=== PATIENT | male | born 1950 | race Caucasian/White ===

== ENCOUNTER 2020-02-26 19:45 | Observation (INO) ==
[2020-02-26 20:50] VITALS: BMI 25.0
--- NOTE | 2020-02-26 21:49 | DR.SOBA ---
HPI Time Seen Time Seen by Provider: 02/26/20 21:49 Primary Care Physician Primary Care Physician: KELLY VILLAFANA HPI Comment HPI Comment: 69 yo m w/ advanced dementia recent dc'd from hospital w/ covid presents w/ stool incontinence. Son simply states they are unable to care for him due to since discharge from hospital patient has been incontinent of stool. Limited hx as son left shortly after patient's arrival. No recent f/c, sob, cough. Complaints Chief Complaint:: PATIENT INTO ED WITH HIS SON IN WHEELCHAIR WITH C/O "COVID"; PATIENT'S SON STATES PATIENT WAS DIAGNOSED BY PCP LAST WEEK, BUT STATES NO MEDICATIONS WERE GIVEN. PATIENT'S SON IS ALSO INQUIRING ABOUT SHELTER PLACEMENT FOR PATIENT DUE TO DEMENTIA Source History Provided: Family Member and Other Mode of Arrival Mode of Arrival: Ambulatory Timing Onset of Chief Complaint: 02/19/20 Other History Other History: limited hx d/t dementia PMH PMH Past Medical History: Yes Past Medical History: Alzheimers, Hypertension and Hypothyroidism Past Medical History Comment: HEP C Past Surgical History: Yes Surgical History: Joint Replacement Past Surgical History Comment: RIGHT HIP REPLACEMENT, THYROIDECTOMY Family History History of Family Medical Conditions: No Social History Alcohol Use: None Do you use any recreational Drugs:: No Lives With: Family Lives Where: Home Infectious screening Have you traveled outside the country in the last 6 months?: No Isolation: Droplet ROS Review of Systems Unable to Obtain Due To: Altered mental status and Dementia PE Vital Signs Vitals: Temperature 36.4 C Pulse Rate 69 Respiratory Rate 25 Blood Pressure [Left Arm] 142/78 Blood Pressure 163/78 O2 Sat by Pulse Oximetry 100 General Limitations: No Limitations General Appearance: Alert and Other (a/o x 0. ) Head Head Exam: Normal Inspection Eyes Eye exam: Normal Appearance ENT ENT Exam: Normal Exam Neck Neck Exam: Normal Inspection Chest Chest Inspection: Normal Inspection Respiratory Respiratory Exam: Normal Lung Sounds Bilat Respiratory Exam: Bilateral: Clear to Auscultation Cardiovascular Cardiovascular Exam: Regular Rate and Normal Rhythm Abdominal Exam Abdominal Exam: Normal Inspection, Normal Bowel Sounds and Soft Extremities Extremities Exam: Normal Inspection Back Back Exam: Normal Inspection Neurologic Neurological Exam: Alert, CN II-XII Intact and Motor Sensory Deficit (moves all 4 extremities w/o gross focal defecit ); negative Oriented X3 Psychiatric Psychiatric Exam: Normal Affect and Normal Mood Skin Skin Exam: Warm, Dry, Intact and Normal Color MDM Differential Diagnosis Differential Diagnosis: Bronchitis, CHF, COPD, Hyponatremia, Pneumonia and URI Differential Diagnosis Comment:: uti, ICH, cva COURSE Treatment Treatment: 69 yo m presents w/ fecal incontinence. Family unable to care for him at home. HX of advanced dementia. CTH negative. Labs demonstrate uti. Rocephin given. Family requesting placement. d/w Dr Mcmanus whom agrees to admit. ROR Labs Reviewed Laboratory Results Reviewed?: Yes Result Diagrams: 02/26/20 22:20 02/26/20 22:20 Laboratory: WBC 9.8 X10^3/uL (3.6-10.0) 02/26/20 22: RBC 3.78 X10^6/uL (4.7-6.0) L 02/26/20:20 Hgb 13.4 g/dL (13.5-18.0) L 02/26/20 22:20 Hct 39.7 % (42.0-54.0) L 02/26/20:20 MCV 105.0 fL (80.0-100.0) H 02/26/20 22:20 MCH 35.3 pg (27.0-34.0) H 02/26/20 22:20 MCHC 33.6 g/dL (33.0-35.0) 02/26/20: RDW 13.3 % (11.6-16.5) 02/26/20:20 Plt Count 185 X10^3/uL (150.0-450.0) 02/26/20:20 MPV 9.8 fL (7.4-11.0) 02/26/20:20 Neut % (Auto) 73.4 % (42.0-75.0) 02/26/20 22:20 Lymph % (Auto) 13.9 % (21.0-51.0) L 02/26/20:20 [place] % (Auto) 10.6 % (0.0-13.0) 02/26/20 22:20 Eos % (Auto) 1.5 % (0.9-2.9) 02/26/20:20 Baso % (Auto) 0.6 % (0.2-1.0) 12/25/20 22:20 Neut # (Auto) 7.2 x10^3/uL (2.2-4.8) H 02/26/20 22:20 Lymph # (Auto) 1.4 X10^3/uL (1.3-2.9) 02/26/20 22:20 [place] # (Auto) 1.0 x10^3/uL (0.3-0.8) H 02/26/20 22:20 Eos # (Auto) 0.1 x10^3/uL (0.0-0.2) 02/26/20 22:20 Baso # (Auto) 0.1 X10^3/uL (0.0-0.1) 02/26/20 22:20 Absolute Nucleated RBC 0.1 /100WBC 02/26/20 22:20 Sodium 141 mmol/L (136-145) 02/26/20 22:20 Corrected Sodium 141 mmol/L (136-145) 02/26/20 22:20 Potassium 4.3 mmol/L (3.5-5.1) 02/26/20 22:20 Chloride 107 mmol/L (98-107) 02/26/20 22:20 Carbon Dioxide 22.9 mmol/L (21-32) 02/26/20 22:20 BUN 36 mg/dL (7-18) H 02/26/20 22:20 Creatinine 1.58 mg/dL (0.70-1.30) H 02/26/20 22:20 Est GFR (MDRD) Af Amer 56 (>60) L 02/26/20 22:20 Est GFR (MDRD) Non-Af 47 (>60) L 02/26/20 22:20 Glucose 118 mg/dL (65-99) H 02/26/20 22:20 Calcium 8.9 mg/dL (8.5-10.1) 02/26/20 22:20 Ferritin 756 ng/mL (26-388) H 02/26/20 22:20 Lactate Dehydrogenase 285 Units/L (85-227) H 02/26/20 22:20 Troponin I 0.02 ng/mL (0-1.5) 02/26/20 22:20 Specimen Type Clean catch urine 02/27/20 00:15 Urine Color Yellow (YELLOW) 12/26/20 00:15 Urine Appearance Clear (CLEAR) 02/27/20 00:15 Urine pH 5.0 (5.0 - 8.0) 02/27/20 00:15 Ur Specific [place] 1.025 (1.000-1.030) 02/27/20 00:15 Urine Protein 4+ (NEGATIVE) 02/27/20 00:15 Urine Glucose (UA) Negative (NEGATIVE) 02/27/20 00:15 Urine Ketones Negative (NEGATIVE) 02/27/20 00:15 Urine Occult Blood 1+ (NEGATIVE) 02/27/20 00:15 Urine Nitrite Negative (NEGATIVE) 02/27/20 00:15 Urine Bilirubin Negative (NEGATIVE) 02/27/20 00:15 Urine Urobilinogen Normal (NORMAL) 02/27/20 00:15 Ur Leukocyte Esterase 1+ (NEGATIVE) 02/27/20 00:15 Urine RBC 0-2 /HPF (0-3) 02/27/20 00:15 Urine WBC 20-30 /HPF (0-5) A 02/27/20 00:15 Ur Squamous Epith Cells Few /HPF (NEGATIVE) 02/27/20 00:15 Urine Bacteria 1+ /HPF (NEGATIVE) 02/27/20 00:15 Ur Culture Indicated? Yes/culture set up 02/27/20 00:15 Opioid Opioid Risk Tool Total: 0 Total Score Risk Category: Low Risk Copyright: Tomas GAXIOLA predicting aberrant behaviors Diagnosis Discharge Problem: UTI (urinary tract infection) Qualifiers: Urinary tract infection type: acute cystitis Hematuria presence: without hematuria Qualified Code(s): N30.00 - Acute cystitis without hematuria Dementia Qualifiers: Dementia type: unspecified type Dementia behavioral disturbance: without behavioral disturbance Qualified Code(s): F03.90 - Unspecified dementia without behavioral disturbance Instructions Forms: Precautions for COVID19 Patient Portal Social Distancing
[2020-02-26] MEDS ORDERED: DECADRON INJ PRESERVATIVE-FREE IVP ONE (22:08)
[2020-02-26] MEDS ORDERED: DUONEB 0.5 MG/3 MG (3 mL) NEB ONE (22:08)
--- NOTE | 2020-02-26 22:30 | RAD ---
HISTORYCOVID, SOBSTUDYCHEST, 1 VIEWCOMPARISONNoneFINDINGSThe trachea is midline. The cardiac silhouette is unremarkable . The lungs are clear without focal infiltrate or effusion. Pulmonary vasculature is within normal limits. The bony thorax is unremarkable.IMPRESSIONNo acute cardiopulmonary disease.Electronically signed by: Mehran Triplett (Feb 26, 2020 22:28:26)
[2020-02-26 22:39] LABS: BASOPHILS # (AUTO) 0.1 X10^3/uL (0.0-0.1); BASOPHILS % (AUTO) 0.6 % (0.2-1.0); EOSINOPHILS # (AUTO) 0.1 x10^3/uL (0.0-0.2); EOSINOPHILS % (AUTO) 1.5 % (0.9-2.9); HEMATOCRIT 39.7 % (42.0-54.0); HEMOGLOBIN 13.4 g/dL (13.5-18.0); LYMPHOCYTES # (AUTO) 1.4 X10^3/uL (1.3-2.9); LYMPHOCYTES % (AUTO) 13.9 % (21.0-51.0); MEAN CORPUSCULAR HEMOGLOBIN 35.3 pg (27.0-34.0); MEAN CORPUSCULAR HGB CONC 33.6 g/dL (33.0-35.0); MEAN PLATELET VOLUME 9.8 fL (7.4-11.0); MONOCYTES % (AUTO) 10.6 % (0.0-13.0); NEUTROPHILS # (AUTO) 7.2 x10^3/uL (2.2-4.8); NEUTROPHILS % (AUTO) 73.4 % (42.0-75.0); PLATELET COUNT 185 X10^3/uL (150.0-450.0); RED BLOOD COUNT 3.78 X10^6/uL (4.7-6.0); RED CELL DISTRIBUTION WIDTH 13.3 % (11.6-16.5); WHITE BLOOD COUNT 9.8 X10^3/uL (3.6-10.0)
[2020-02-26 23:18] LABS: CALCIUM 8.9 mg/dL (8.5-10.1); CARBON DIOXIDE 22.9 mmol/L (21-32); CREATININE 1.58 mg/dL (0.70-1.30); TROPONIN I 0.02 ng/mL (0-1.5)
[2020-02-26] MEDS ORDERED: NS 1000 ML 1,000 ML IV ONE (23:21)
[2020-02-26] MEDS ORDERED: NS 1000 ML 1,000 ML ONE (23:38)
[2020-02-26] MEDS ORDERED: DECADRON INJ ONE (23:39)
[2020-02-27 00:33] LABS: BILIRUBIN,URINE NEGATIVE (NEGATIVE); BLOOD/HEMOGLOBIN,URINE 1+ (NEGATIVE); GLUCOSE, URINE NEGATIVE (NEGATIVE); KETONES,URINE NEGATIVE (NEGATIVE); LEUKOCYTE ESTERASE ,URINE 1+ (NEGATIVE); NITRITES,URINE NEGATIVE (NEGATIVE); PROTEIN,URINE 4+ (NEGATIVE); UROBILINOGEN,URINE NORMAL (NORMAL)
[2020-02-27 00:46] LABS: APPEARANCE,URINE CLEAR (CLEAR); BACTERIA,URINE 1+ /HPF (NEGATIVE); COLOR,URINE YELLOW (YELLOW); RBC,URINE 0-2 /HPF (0-3); SQUAMOUS EPITHELIAL CELL,UR FEW /HPF (NEGATIVE)
[2020-02-27] MEDS ORDERED: ROCEPHIN VIAL 1 GRAM 1 G in NS 100 ML IV + SPIKE MINIBAG* 100 ML IV SCH (00:53)
[2020-02-27] MEDS ORDERED: APRESOLINE INJ 20 MG VIAL IVP ONE (01:30)
[2020-02-27] MEDS ORDERED: APRESOLINE INJ 20 MG VIAL ONE (01:42)
[2020-02-27] MEDS ORDERED: NS 50 ML IV + SPIKE MINIBAG* 50 ML IV ONE (02:02)
[2020-02-27] MEDS ORDERED: ROCEPHIN VIAL 1 GRAM ONE ×2 (02:02→02:06)
[2020-02-27] MEDS ORDERED: NS 100 ML IV 0 ML IV ONE (02:06)
--- NOTE | 2020-02-27 02:19 | CT ---
History: ams covid Relevant Clinical InformationExam :BRAIN W/O CONTechnique: Thin section axial ct images of the brain were obtained from the foramen magnum to the vertex without contrast. Sagittal and coronal reconstructions were also performed.Comparison: NoneFindings:The ventricles are within normal limits in size. No midline shift, mass effect or extra-axial fluid collections. No evidence of acute hemorrhage or acute macroinfarction. Mild cortical atrophy compatible with patient's age. Decreased attenuation in the periventricular and subcortical white matter consistent with microvascular ischemic white matter changes.The visualized paranasal sinuses and mastoids are unremarkable. The calvarium is intact.Impression:Mild cortical atrophy with extensive microvascular ischemic white matter changes.No acute intracranial pathology.Electronically signed by: Mehran Triplett (Feb 27, 2020 02:17:56)
[2020-02-27 09:18] LABS: BILIRUBIN,URINE NEGATIVE (NEGATIVE); BLOOD/HEMOGLOBIN,URINE NEGATIVE (NEGATIVE); GLUCOSE, URINE NEGATIVE (NEGATIVE); KETONES,URINE NEGATIVE (NEGATIVE); LEUKOCYTE ESTERASE ,URINE 2+ (NEGATIVE); NITRITES,URINE NEGATIVE (NEGATIVE); PROTEIN,URINE 4+ (NEGATIVE); UROBILINOGEN,URINE NORMAL (NORMAL)
[2020-02-27 09:19] LABS: COLOR,URINE YELLOW (YELLOW)
[2020-02-27 09:20] LABS: APPEARANCE,URINE HAZY (CLEAR)
[2020-02-27 09:29] LABS: BACTERIA,URINE 2+ /HPF (NEGATIVE); RBC,URINE 0-2 /HPF (0-3); SQUAMOUS EPITHELIAL CELL,UR RARE /HPF (NEGATIVE)
[2020-02-27 09:30] LABS: AMORPHOUS SEDIMENT,UR TRACE /HPF (NEGATIVE)
--- NOTE | 2020-02-27 12:34 | DR.H&P ---
H&P History & Physical for Day of: H&P Date: 02/27/20 Chief Complaint Chief Complaint: Weakness Allergies Allergies Allergy/AdvReac Type Severity Reaction Status Date / Time No Known Drug Allergies Allergy Verified 02/26/20 22:03 History of Present Illness History of Present Illness: Pt is a 69 year old male past medical history of advanced dementia, hypertension, hypothyroidism, presenting with weakness and worsening confusion. He was apparently dropped off at the ED by his son who stated he was unable to care for him weakness and incontinence of stool. Lab s/imaging: Wbc 9.8, Hgb 13.4, Plt 185, Na 141, K 4.3, Cr 1.58, Glucose 118, UA:+leukocytes, +wbc, Urine culture pending, COVID-19 pending, CXR: No acute cardiopulmonary disease. CT head: Mild cortical atrophy with extensive microvascular ischemic white matter changes. No acute intracranial pathology. Will start patient on Rocephin for acute cystitis that is likely causing worsening confusion with underlying advanced dementia. Will need to discuss with case management to determine family plans concerning discharge. Continue to monitor and follow up labs/imaging in the morning. Past Medical History Past Medical History: Alzheimers, Hypertension and Hypothyroidism Past Surgical History Surgical History: Ortho Surgery and Thyroidectomy Social History Does patient currently use any type of tobacco product: Yes Have you used tobacco products in the last 12 months: Yes Type of Tobacco Use: Cigarettes Does any household member use tobacco: No Alcohol Use: None Drug Use: None Medications Home Medications: No Known Drug Allergies Allergy (Verified 02/26/20 22:03) Labs Result Diagrams: 02/26/20 22:20 02/26/20 22:20 Labs: Laboratory WBC 9.8 X10^3/uL (3.6-10.0) 02/26/20 22:20 RBC 3.78 X10^6/uL (4.7-6.0) L 02/26/20 22:20 Hgb 13.4 g/dL (13.5-18.0) L 02/26/20 22:20 Hct 39.7 % (42.0-54.0) L 02/26/20 22:20 MCV 105.0 fL (80.0-100.0) H 02/26/20 22:20 MCH 35.3 pg (27.0-34.0) H 02/26/20 22:20 MCHC 33.6 g/dL (33.0-35.0) 02/26/20 22:20 RDW 13.3 % (11.6-16.5) 02/26/20 22:20 Plt Count 185 X10^3/uL (150.0-450.0) 02/26/20 22:20 MPV 9.8 fL (7.4-11.0) 02/26/20 22:20 Neut % (Auto) 73.4 % (42.0-75.0) 02/26/20 22:20 Lymph % (Auto) 13.9 % (21.0-51.0) L 02/26/20 22:20 [place] % (Auto) 10.6 % (0.0-13.0) 02/26/20 22:20 Eos % (Auto) 1.5 % (0.9-2.9) 02/26/20 22:20 Baso % (Auto) 0.6 % (0.2-1.0) 02/26/20 22:20 Neut # (Auto) 7.2 x10^3/uL (2.2-4.8) H 02/26/20 22:20 Lymph # (Auto) 1.4 X10^3/uL (1.3-2.9) 02/26/20 22:20 [place] # (Auto) 1.0 x10^3/uL (0.3-0.8) H 02/26/20 22:20 Eos # (Auto) 0.1 x10^3/uL (0.0-0.2) 02/26/20 22:20 Baso # (Auto) 0.1 X10^3/uL (0.0-0.1) 02/26/20 22:20 Absolute Nucleated RBC 0.1 /100WBC 02/26/20 22:20 Sodium 141 mmol/L (136-145) 02/26/20 22:20 Corrected Sodium 141 mmol/L (136-145) 02/26/20 22:20 Potassium 4.3 mmol/L (3.5-5.1) 02/26/20 22:20 Chloride 107 mmol/L (98-107) 02/26/20 22:20 Carbon Dioxide 22.9 mmol/L (21-32) 02/26/20 22:20 BUN 36 mg/dL (7-18) H 02/26/20 22:20 Creatinine 1.58 mg/dL (0.70-1.30) H 02/26/20 22:20 Est GFR (MDRD) Af Amer 56 (>60) L 02/26/20 22:20 Est GFR (MDRD) Non-Af 47 (>60) L 02/26/20 22:20 Glucose 118 mg/dL (65-99) H 02/26/20 22:20 Calcium 8.9 mg/dL (8.5-10.1) 02/26/20 22:20 Ferritin 756 ng/mL (26-388) H 02/26/20 22:20 Lactate Dehydrogenase 285 Units/L (85-227) H 02/26/20 22:20 Troponin I 0.02 ng/mL (0-1.5) 02/26/20 22:20 Specimen Type Catherized urine 02/27/20 08:57 Urine Color Yellow (YELLOW) 02/27/20 08:57 Urine Appearance Hazy (CLEAR) 02/27/20 08:57 Urine pH 6.0 (5.0 - 8.0) 02/27/20 08:57 Ur Specific [place] 1.020 (1.000-1.030) 02/27/20 08:57 Urine Protein 4+ (NEGATIVE) 02/27/20 08:57 Urine Glucose (UA) Negative (NEGATIVE) 02/27/20 08:57 Urine Ketones Negative (NEGATIVE) 02/27/20 08:57 Urine Occult Blood Negative (NEGATIVE) 02/27/20 08:57 Urine Nitrite Negative (NEGATIVE) 02/27/20 08:57 Urine Bilirubin Negative (NEGATIVE) 02/27/20 08:57 Urine Urobilinogen Normal (NORMAL) 02/27/20 08:57 Ur Leukocyte Esterase 2+ (NEGATIVE) 02/27/20 08:57 Urine RBC 0-2 /HPF (0-3) 02/27/20 08:57 Urine WBC Tntc /HPF (0-5) A 02/27/20 08:57 Ur Squamous Epith Cells Rare /HPF (NEGATIVE) 02/27/20 08:57 Amorphous Sediment Trace /HPF (NEGATIVE) 02/27/20 08:57 Urine Bacteria 2+ /HPF (NEGATIVE) 02/27/20 08:57 Ur Culture Indicated? Yes/culture set up 02/27/20 08:57 SARS CoV-2 RNA Rapid RODRI Negative (NEGATIVE) 02/27/20 06:51 Review of Systems Constitutional: Weakness; denies Fever and Chills Eyes: No Symptoms Reported ENT: No Symptoms Reported Respiratory: No Symptoms Reported Cardiovascular: No Symptoms Reported Gastrointestinal: No Symptoms Reported Genitourinary: Dysuria Musculoskeletal: No Symptoms Reported Skin: No Symptoms Reported Neurological: Weakness and Confusion Physical Exam Vital Signs: Temperature 97.6 F Pulse Rate 69 Respiratory Rate 25 Blood Pressure [Left Arm] 142/78 Blood Pressure 123/67 O2 Sat by Pulse Oximetry 100 Oriented: Person and Place Eyes: Normal Ear: Normal Nose: Normal Throat: Normal Respiratory: Clear Throughout Cardiovascular: Normal : Normal Auscultation: Bowel Sounds: Normal Palpation: Normal Tenderness: Suprapubic and Mild Skin: Normal Musculoskeletal: Normal Psychiatric: Normal Mood Description: Calm and Appropriate Affect: Normal Speech Pattern: Clear and Appropriate Assessment/Plan (1) UTI (urinary tract infection): Qualifiers: Hematuria presence: without hematuria Urinary tract infection type: acute cystitis Qualified Code(s): N30.00 - Acute cystitis without hematuria Status: Acute Plan: Continue rocephin Urine culture pending (2) Dementia: Qualifiers: Dementia behavioral disturbance: without behavioral disturbance Dementia type: unspecified type Qualified Code(s): F03.90 - Unspecified dementia without behavioral disturbance Status: Acute Review H&P Reviewed: Yes Patient was examined?: Yes
[2020-02-27] MEDS ORDERED: VISTARIL PO ONE (21:28)
[2020-02-27] MEDS: VISTARIL PO PRN (21:37)
[2020-02-28 06:34] LABS: BASOPHILS % (AUTO) 0.5 % (0.2-1.0); EOSINOPHILS # (AUTO) 0.1 x10^3/uL (0.0-0.2); EOSINOPHILS % (AUTO) 2.1 % (0.9-2.9); HEMATOCRIT 32.3 % (42.0-54.0); HEMOGLOBIN 10.9 g/dL (13.5-18.0); LYMPHOCYTES # (AUTO) 1.4 X10^3/uL (1.3-2.9); LYMPHOCYTES % (AUTO) 20.3 % (21.0-51.0); MEAN CORPUSCULAR HEMOGLOBIN 35.6 pg (27.0-34.0); MEAN CORPUSCULAR HGB CONC 33.9 g/dL (33.0-35.0); MEAN CORPUSCULAR VOLUME 105.3 fL (80.0-100.0); MEAN PLATELET VOLUME 10.2 fL (7.4-11.0); MONOCYTES # (AUTO) 0.5 x10^3/uL (0.3-0.8); MONOCYTES % (AUTO) 7.6 % (0.0-13.0); NEUTROPHILS # (AUTO) 4.7 x10^3/uL (2.2-4.8); NEUTROPHILS % (AUTO) 69.5 % (42.0-75.0); PLATELET COUNT 121 X10^3/uL (150.0-450.0); RED BLOOD COUNT 3.07 X10^6/uL (4.7-6.0); RED CELL DISTRIBUTION WIDTH 13.4 % (11.6-16.5); WHITE BLOOD COUNT 6.8 X10^3/uL (3.6-10.0)
[2020-02-28 06:47] LABS: ALBUMIN 2.1 g/dL (3.4-5.0); CARBON DIOXIDE 21.5 mmol/L (21-32); COR CA(FOR HYPOALB) 9.5 mg/dL (8.5-10.1); CREATININE 1.52 mg/dL (0.70-1.30); TOTAL PROTEIN 5.5 g/dL (6.4-8.2)
[2020-02-28 07:34] LABS: PLATELET MORPHOLOGY COMMENT NORMAL (NORMAL)
[2020-02-28] MEDS: ROCEPHIN 1 GRAM IV PREMIX 1 G/50 ML IV.SOLN. IV SCH (10:23)
--- NOTE | 2020-02-28 12:03 | PCM.PROG ---
Progress Note Progress Note for Day of Date of Exam: 02/28/20 Subjective Subjective: Pt is a 69 year old male past medical history of advanced dementia, hypertension, hypothyroidism, admitted for acute cystitis, weakness, and worsening confusion. This morning he appears to be feeling better. Labs/imaging: Wbc 6.8, Hgb 10.9, Plt 121, Na 142, K 3.8, Cr 1.52, Glucose 121, Urine culture > 100K gram positive cocci, COVID-19 negative. Treatment course includes: antibiotics: Rocephin. Leukocytosis trending down. Will need to discuss with case management to determine family plans concerning discharge. Otherwise continue current care plan. Continue to monitor and follow up labs/imaging in the morning. Past Medical Family Social History Past Med/Fam/Surg Hx: No changes since H&P Allergies: Allergies No Known Drug Allergies Allergy (Verified 02/26/20 22:03) Review of Systems ROS: No change since H&P Vital Signs and I&O's Vital Signs: Temperature 97.6 F Pulse Rate [Left Brachial] 54 Pulse Rate 69 Respiratory Rate 18 Blood Pressure [Left Arm] 184/94 Blood Pressure 123/67 O2 Sat by Pulse Oximetry 99 Intake and Output: Intake & Output 02/25/20 02/26/20 02/27/20 02/28/20 23:59 23:59 23:59 23:59 Intake Total 1080 / 1080 360 / 360 Output Total 950 / 950 550 / 550 Balance 130 / 130 -190 / -190 Physical Exam Oriented: Person and Place Eyes: Normal Ear: Normal Nose: Normal Throat: Normal Respiratory: Normal Cardiovascular: Normal : Normal Auscultation: Bowel Sounds: Normal Tenderness: Suprapubic and Mild Skin: Normal Musculoskeletal: Normal Psychiatric: Normal Mood Description: Calm and Appropriate Affect: Normal Speech Pattern: Clear and Appropriate Laboratory and Diagnostics Result Diagrams: 02/28/20 05:43 02/28/20 05:43 Labs: 02/27/20 08:57 Urine,Catheterized Urine Culture - Preliminary Laboratory WBC 6.8 X10^3/uL (3.6-10.0) 02/28/20 05:43 RBC 3.07 X10^6/uL (4.7-6.0) L 02/28/20 05:43 Hgb 10.9 g/dL (13.5-18.0) L D 02/28/20 05:43 Hct 32.3 % (42.0-54.0) L 02/28/20 05:43 MCV 105.3 fL (80.0-100.0) H 02/28/20 05:43 MCH 35.6 pg (27.0-34.0) H 02/28/20 05:43 MCHC 33.9 g/dL (33.0-35.0) 02/28/20 05:43 RDW 13.4 % (11.6-16.5) 02/28/20 05:43 Plt Count 121 X10^3/uL (150.0-450.0) L 02/28/20 05:43 Plt Count Comment Decreased (ADEQUATE) 02/28/20 05:43 MPV 10.2 fL (7.4-11.0) 02/28/20 05:43 Neut % (Auto) 69.5 % (42.0-75.0) 02/28/20 05:43 Lymph % (Auto) 20.3 % (21.0-51.0) L 02/28/20 05:43 [place] % (Auto) 7.6 % (0.0-13.0) 02/28/20 05:43 Eos % (Auto) 2.1 % (0.9-2.9) 02/28/20 05:43 Baso % (Auto) 0.5 % (0.2-1.0) 02/28/20 05:43 Neut # (Auto) 4.7 x10^3/uL (2.2-4.8) 02/28/20 05:43 Lymph # (Auto) 1.4 X10^3/uL (1.3-2.9) 02/28/20 05:43 [place] # (Auto) 0.5 x10^3/uL (0.3-0.8) 02/28/20 05:43 Eos # (Auto) 0.1 x10^3/uL (0.0-0.2) 02/28/20 05:43 Baso # (Auto) 0.0 X10^3/uL (0.0-0.1) 02/28/20 05:43 Absolute Nucleated RBC 0.1 /100WBC 02/28/20 05:43 Plt Morphology Comment Normal (NORMAL) 02/28/20 05:43 RBC Morphology Abnormal (NORMAL) 02/28/20 05:43 Macrocytosis 1+ A 02/28/20 05:43 Sodium 142 mmol/L (136-145) 02/28/20 05:43 Corrected Sodium 143 mmol/L (136-145) 02/28/20 05:43 Potassium 3.8 mmol/L (3.5-5.1) 02/28/20 05:43 Chloride 111 mmol/L (98-107) H 02/28/20 05:43 Carbon Dioxide 21.5 mmol/L (21-32) 02/28/20 05:43 BUN 38 mg/dL (7-18) H 02/28/20 05:43 Creatinine 1.52 mg/dL (0.70-1.30) H 02/28/20 05:43 Est GFR (MDRD) Af Amer 59 (>60) 02/28/20 05:43 Est GFR (MDRD) Non-Af 49 (>60) L 02/28/20 05:43 Glucose 121 mg/dL (65-99) H 02/28/20 05:43 Calcium 8.0 mg/dL (8.5-10.1) L 02/28/20 05:43 Corrected Calcium 9.5 mg/dL (8.5-10.1) 02/28/20 05:43 Ferritin 756 ng/mL (26-388) H 02/26/20 22:20 Total Bilirubin 0.30 mg/dL (0.2-1.0) 02/28/20 05:43 AST 69 Units/L (15-37) H 02/28/20 05:43 ALT 89 Units/L (12-78) H 02/28/20 05:43 Alkaline Phosphatase 125 Units/L (46-116) H 02/28/20 05:43 Lactate Dehydrogenase 285 Units/L (85-227) H 02/26/20 22:20 Troponin I 0.02 ng/mL (0-1.5) 02/26/20 22:20 Total Protein 5.5 g/dL (6.4-8.2) L 02/28/20 05:43 Albumin 2.1 g/dL (3.4-5.0) L 02/28/20 05:43 Globulin 3.4 g/dL (2.5-4.5) 02/28/20 05:43 Albumin/Globulin Ratio 0.6 Ratio (1.1-2.1) L 02/28/20 05:43 Specimen Type Catherized urine 02/27/20 08:57 Urine Color Yellow (YELLOW) 02/27/20 08:57 Urine Appearance Hazy (CLEAR) 02/27/20 08:57 Urine pH 6.0 (5.0 - 8.0) 02/27/20 08:57 Ur Specific [place] 1.020 (1.000-1.030) 02/27/20 08:57 Urine Protein 4+ (NEGATIVE) 02/27/20 08:57 Urine Glucose (UA) Negative (NEGATIVE) 02/27/20 08:57 Urine Ketones Negative (NEGATIVE) 02/27/20 08:57 Urine Occult Blood Negative (NEGATIVE) 02/27/20 08:57 Urine Nitrite Negative (NEGATIVE) 02/27/20 08:57 Urine Bilirubin Negative (NEGATIVE) 02/27/20 08:57 Urine Urobilinogen Normal (NORMAL) 02/27/20 08:57 Ur Leukocyte Esterase 2+ (NEGATIVE) 02/27/20 08:57 Urine RBC 0-2 /HPF (0-3) 02/27/20 08:57 Urine WBC Tntc /HPF (0-5) A 02/27/20 08:57 Ur Squamous Epith Cells Rare /HPF (NEGATIVE) 02/27/20 08:57 Amorphous Sediment Trace /HPF (NEGATIVE) 02/27/20 08:57 Urine Bacteria 2+ /HPF (NEGATIVE) 02/27/20 08:57 Ur Culture Indicated? Yes/culture set up 02/27/20 08:57 SARS CoV-2 RNA Rapid RODRI Negative (NEGATIVE) 02/27/20 06:51 Plan (1) UTI (urinary tract infection): Status: Acute Qualifiers: Hematuria presence: without hematuria Urinary tract infection type: acute cystitis Qualified Code(s): N30.00 - Acute cystitis without hematuria Plan: Continue rocephin Urine culture gram positive cocci (2) Dementia: Status: Acute Qualifiers: Dementia behavioral disturbance: without behavioral disturbance Dementia type: unspecified type Qualified Code(s): F03.90 - Unspecified dementia without behavioral disturbance
[2020-02-28] MEDS: NORVASC TAB 5 MG PO SCH (13:43)
[2020-02-28] MEDS: VISTARIL PO PRN (21:58)
[2020-02-29 06:59] LABS: ALANINE AMINOTRANSFERASE 84 Units/L (12-78); ALBUMIN 2.1 g/dL (3.4-5.0); ALKALINE PHOSPHATASE 138 Units/L (46-116); ASPARTATE AMINO TRANSFERASE 70 Units/L (15-37); BLOOD UREA NITROGEN 36 mg/dL (7-18); CALCIUM 8.1 mg/dL (8.5-10.1); CARBON DIOXIDE 21.7 mmol/L (21-32); CHLORIDE 110 mmol/L (98-107); COR CA(FOR HYPOALB) 9.6 mg/dL (8.5-10.1); CREATININE 1.35 mg/dL (0.70-1.30); SODIUM 142 mmol/L (136-145); TOTAL PROTEIN 5.5 g/dL (6.4-8.2); eGFR NON BLACK RACES 56 (>60)
[2020-02-29 07:04] LABS: BASOPHILS % (AUTO) 0.6 % (0.2-1.0); EOSINOPHILS # (AUTO) 0.2 x10^3/uL (0.0-0.2); HEMOGLOBIN 11.2 g/dL (13.5-18.0); LYMPHOCYTES # (AUTO) 1.3 X10^3/uL (1.3-2.9); LYMPHOCYTES % (AUTO) 20.5 % (21.0-51.0); MEAN CORPUSCULAR HEMOGLOBIN 35.5 pg (27.0-34.0); MEAN CORPUSCULAR HGB CONC 33.8 g/dL (33.0-35.0); MEAN CORPUSCULAR VOLUME 104.9 fL (80.0-100.0); MEAN PLATELET VOLUME 9.7 fL (7.4-11.0); MONOCYTES # (AUTO) 0.4 x10^3/uL (0.3-0.8); MONOCYTES % (AUTO) 6.6 % (0.0-13.0); NEUTROPHILS # (AUTO) 4.3 x10^3/uL (2.2-4.8); NEUTROPHILS % (AUTO) 69.3 % (42.0-75.0); PLATELET COUNT 117 X10^3/uL (150.0-450.0); RED BLOOD COUNT 3.15 X10^6/uL (4.7-6.0); RED CELL DISTRIBUTION WIDTH 13.3 % (11.6-16.5); WHITE BLOOD COUNT 6.2 X10^3/uL (3.6-10.0)
[2020-02-29] MEDS: NORVASC TAB 5 MG PO SCH (09:31)
[2020-02-29] MEDS: ROCEPHIN 1 GRAM IV PREMIX 1 G/50 ML IV.SOLN. IV SCH (10:41)
--- NOTE | 2020-02-29 10:55 | PCM.PROG ---
Progress Note Progress Note for Day of Date of Exam: 02/29/20 Subjective Subjective: Pt is a 69 year old male past medical history of advanced dementia, hypertension, hypothyroidism, admitted for acute cystitis, weakness, and worsening confusion. This morning he is sitting up in bed comfortably. Labs/imaging: Wbc 6.2, Hgb 11.2, Plt 117, Na 142, K 3.9, Cr 1.35, Glucose 87, Ur ine culture: Enterococcus faecalis, COVID-19 negative. Will change patient from Rocephin to Ciprofloxacin that is sensitive on culture. Discussed with case management to determine family plans concerning discharge. Likely will need assisted placement. Continue current treatment plan. Continue to monitor and follow up labs/imaging in the morning. Past Medical Family Social History Past Med/Fam/Surg Hx: No changes since H&P Allergies: Allergies No Known Drug Allergies Allergy (Verified 02/26/20 22:03) Review of Systems ROS: No change since H&P Vital Signs and I&O's Vital Signs: Temperature 98.0 F Pulse Rate [Left Brachial] 86 Pulse Rate 69 Respiratory Rate 18 Blood Pressure [Left Arm] 189/95 Blood Pressure 123/67 O2 Sat by Pulse Oximetry 99 Intake and Output: Intake & Output 02/26/20 02/27/20 02/28/20 02/29/20 23:59 23:59 23:59 23:59 Intake Total 1080 / 1080 2460 / 2460 480 / 480 Output Total 950 / 950 0 / 0 800 / 800 Balance 130 / 130 410 / 410 -320 / -320 Physical Exam Oriented: Person and Place Eyes: Normal Ear: Normal Nose: Normal Throat: Normal Respiratory: Normal Cardiovascular: Normal : Normal Auscultation: Bowel Sounds: Normal Tenderness: Suprapubic and Mild Skin: Normal Musculoskeletal: Normal Psychiatric: Normal Mood Description: Calm and Appropriate Affect: Normal Speech Pattern: Clear and Appropriate Laboratory and Diagnostics Result Diagrams: 02/29/20 05:20 02/29/20 05:20 Labs: 02/27/20 08:57 Urine,Catheterized Urine Culture - Final Enterococcus Faecalis Laboratory WBC 6.2 X10^3/uL (3.6-10.0) 02/29/20 05:20 RBC 3.15 X10^6/uL (4.7-6.0) L 02/29/20 05:20 Hgb 11.2 g/dL (13.5-18.0) L 02/29/20 05:20 Hct 33.0 % (42.0-54.0) L 02/29/20 05:20 MCV 104.9 fL (80.0-100.0) H 02/29/20 05:20 MCH 35.5 pg (27.0-34.0) H 02/29/20 05:20 MCHC 33.8 g/dL (33.0-35.0) 02/29/20 05:20 RDW 13.3 % (11.6-16.5) 02/29/20 05:20 Plt Count 117 X10^3/uL (150.0-450.0) L 02/29/20 05:20 Plt Count Comment Decreased (ADEQUATE) 02/28/20 05:43 MPV 9.7 fL (7.4-11.0) 02/29/20 05:20 Neut % (Auto) 69.3 % (42.0-75.0) 02/29/20 05:20 Lymph % (Auto) 20.5 % (21.0-51.0) L 02/29/20 05:20 [place] % (Auto) 6.6 % (0.0-13.0) 02/29/20 05:20 Eos % (Auto) 3.0 % (0.9-2.9) H 02/29/20 05:20 Baso % (Auto) 0.6 % (0.2-1.0) 02/29/20 05:20 Neut # (Auto) 4.3 x10^3/uL (2.2-4.8) 02/29/20 05:20 Lymph # (Auto) 1.3 X10^3/uL (1.3-2.9) 02/29/20 05:20 [place] # (Auto) 0.4 x10^3/uL (0.3-0.8) 02/29/20 05:20 Eos # (Auto) 0.2 x10^3/uL (0.0-0.2) 02/29/20 05:20 Baso # (Auto) 0.0 X10^3/uL (0.0-0.1) 02/29/20 05:20 Absolute Nucleated RBC 0.1 /100WBC 02/29/20 05:20 Plt Morphology Comment Normal (NORMAL) 02/28/20 05:43 RBC Morphology Abnormal (NORMAL) 02/28/20 05:43 Macrocytosis 1+ A 02/28/20 05:43 Sodium 142 mmol/L (136-145) 02/29/20 05:20 Corrected Sodium TNP 02/29/20 05:20 Potassium 3.9 mmol/L (3.5-5.1) 02/29/20 05:20 Chloride 110 mmol/L (98-107) H 02/29/20 05:20 Carbon Dioxide 21.7 mmol/L (21-32) 02/29/20 05:20 BUN 36 mg/dL (7-18) H 02/29/20 05:20 Creatinine 1.35 mg/dL (0.70-1.30) H 02/29/20 05:20 Est GFR (MDRD) Af Amer > 60 (>60) 02/29/20 05:20 Est GFR (MDRD) Non-Af 56 (>60) L 02/29/20 05:20 Glucose 87 mg/dL (65-99) 02/29/20 05:20 Calcium 8.1 mg/dL (8.5-10.1) L 02/29/20 05:20 Corrected Calcium 9.6 mg/dL (8.5-10.1) 02/29/20 05:20 Ferritin 756 ng/mL (26-388) H 02/26/20 22:20 Total Bilirubin 0.30 mg/dL (0.2-1.0) 02/29/20 05:20 AST 70 Units/L (15-37) H 02/29/20 05:20 ALT 84 Units/L (12-78) H 02/29/20 05:20 Alkaline Phosphatase 138 Units/L (46-116) H 02/29/20 05:20 Lactate Dehydrogenase 285 Units/L (85-227) H 02/26/20 22:20 Troponin I 0.02 ng/mL (0-1.5) 02/26/20 22:20 Total Protein 5.5 g/dL (6.4-8.2) L 02/29/20 05:20 Albumin 2.1 g/dL (3.4-5.0) L 02/29/20 05:20 Globulin 3.4 g/dL (2.5-4.5) 02/29/20 05:20 Albumin/Globulin Ratio 0.6 Ratio (1.1-2.1) L 02/29/20 05:20 Specimen Type Catherized urine 02/27/20 08:57 Urine Color Yellow (YELLOW) 02/27/20 08:57 Urine Appearance Hazy (CLEAR) 02/27/20 08:57 Urine pH 6.0 (5.0 - 8.0) 02/27/20 08:57 Ur Specific [place] 1.020 (1.000-1.030) 02/27/20 08:57 Urine Protein 4+ (NEGATIVE) 02/27/20 08:57 Urine Glucose (UA) Negative (NEGATIVE) 02/27/20 08:57 Urine Ketones Negative (NEGATIVE) 02/27/20 08:57 Urine Occult Blood Negative (NEGATIVE) 02/27/20 08:57 Urine Nitrite Negative (NEGATIVE) 02/27/20 08:57 Urine Bilirubin Negative (NEGATIVE) 02/27/20 08:57 Urine Urobilinogen Normal (NORMAL) 02/27/20 08:57 Ur Leukocyte Esterase 2+ (NEGATIVE) 02/27/20 08:57 Urine RBC 0-2 /HPF (0-3) 02/27/20 08:57 Urine WBC Tntc /HPF (0-5) A 02/27/20 08:57 Ur Squamous Epith Cells Rare /HPF (NEGATIVE) 02/27/20 08:57 Amorphous Sediment Trace /HPF (NEGATIVE) 02/27/20 08:57 Urine Bacteria 2+ /HPF (NEGATIVE) 02/27/20 08:57 Ur Culture Indicated? Yes/culture set up 02/27/20 08:57 SARS CoV-2 RNA Rapid RODRI Negative (NEGATIVE) 02/27/20 06:51 Plan (1) UTI (urinary tract infection): Status: Acute Qualifiers: Hematuria presence: without hematuria Urinary tract infection type: acute cystitis Qualified Code(s): N30.00 - Acute cystitis without hematuria Plan: Ciprofloxacin Urine culture positive Enterococcus gerri. (2) Dementia: Status: Acute Qualifiers: Dementia behavioral disturbance: without behavioral disturbance Dementia type: unspecified type Qualified Code(s): F03.90 - Unspecified dementia without behavioral disturbance
[2020-02-29] MEDS ORDERED: CIPRO TAB 500 MG PO SCH (11:00)
[2020-02-29 12:18] VITALS: BP 191/90
[2020-02-29] MEDS ORDERED: ATIVAN TAB 0.5 MG PO SCH (15:00)
== END 2020-02-29 18:00 | disposition short-term general hospital (02) ==
LOC: OBS 20:36 → ER 20:36 → OBS 02-27 07:02 → MED/SURG 02-27 07:31
PROVIDERS: ADMIT Internal Medicine; ATTEND Internal Medicine
DX: E03.8 Other specified hypothyroidism; R26.89 Other abnormalities of gait and mobility; Z20.828 Contact with and (suspected) exposure to other viral communicable diseases; R94.4 Abnormal results of kidney function studies; R53.1 Weakness; R79.89 Other specified abnormal findings of blood chemistry; F03.90 Unspecified dementia, unspecified severity, without behavioral disturbance, psychotic disturbance, mood disturbance, and anxiety; B95.2 Enterococcus as the cause of diseases classified elsewhere; N30.00 Acute cystitis without hematuria; R94.31 Abnormal electrocardiogram [ECG] [EKG]; I10 Essential (primary) hypertension